=== PATIENT | male | born 1945 | race Two or more races ===

== ENCOUNTER 2024-01-07 13:27 | Emergency (ER) | payer OTHER ==
[~2024-01-07] VITALS: Ht 177.8 cm; Wt 77.1 kg
[2024-01-07] MEDS ORDERED: METFORMIN HCL1000 M1 PO (14:00)
[2024-01-07] MEDS ORDERED: ELIQUIS5 MG PO (14:00)
[2024-01-07] MEDS ORDERED: LANTUS SOL100 UNIT/1 SUBCUTANEO (14:01)
[2024-01-07] MEDS ORDERED: ASPIRIN 325 MG TABLET.EC PO STA (15:43)
[2024-01-07 16:45] LABS: HEMATOCRIT 36.9 % (39.0-48.0); MEAN CELL VOLUME 85.3 fL (80.0-100.00); MEAN CORPUSCULAR HEMOGLOBIN 30.2 pg (27.00-32.0); MEAN CORPUSCULAR HGB CONC 35.4 g/dl (32.0-36.0); PLATELET COUNT 226 K/uL (150-450); RED BLOOD COUNT 4.32 M/uL (4.00-6.00); RED CELL DISTRIBUTION WIDTH 13.4 % (11.5-14.5)
[2024-01-07 16:58] LABS: INR 1.24; PARTIAL THROMBOPLASTIN TIME 30.2 SECONDS (22.0-34.0); PROTHROMBIN TIME 12.8 SECONDS (9.0-11.5)
[2024-01-07 17:04] LABS: CALCIUM 8.8 mg/dL (8.5-10.1); CREATININE SERUM 1.41 mg/dL (0.70-1.30); GFR 48.74; POTASSIUM 3.86 mEq/L (3.5-5.1)
[2024-01-07] MEDS ORDERED: MAGNESIUM SULFATE IN WATER 4 GM/100 ML PIGGYBACK IV ONE (22:00)
== END 2024-01-08 00:30 | disposition home or self-care (01) ==
LOC: ER 13:28
PROVIDERS: Emergency Medicine
DX: R07.9 Chest pain, unspecified (principal); I49.8 Other specified cardiac arrhythmias; Z20.822 Contact with and (suspected) exposure to COVID-19; E83.42 Hypomagnesemia; R53.1 Weakness
CPT/HCPCS: 36415; 93005; 96365; 99283; J3475